=== PATIENT | male | born 1985 | race Caucasian/White ===

== ENCOUNTER 2016-03-05 15:26 | Inpatient (IN) | payer MEDICAID, OTHER ==
[~2016-03-05] VITALS: Ht 177.8 cm; Wt 76.8 kg
[~2016-03-05 15:26] MED LIST: LITH600 PO; QUET200T PO
[2016-03-05 16:02] LABS: BASOPHILS % (AUTO) 0.1 % (0.0-2.0); HEMATOCRIT 44.2 % (41-53); HEMOGLOBIN 14.7 g/dL (13.5-17.5); LYMPHOCYTES # (AUTO) 3.1 K/uL (1.0-4.8); LYMPHOCYTES % (AUTO) 35.9 % (22.0-44.0); MEAN CORPUSCULAR HEMOGLOBIN 28.9 pg (26.0-34.0); MEAN CORPUSCULAR HGB CONC 33.3 G/dL (31.0-37.0); MEAN CORPUSCULAR VOLUME 87 fL (80-100); MONOCYTES # (AUTO) 0.7 K/uL (0.1-1.0); MONOCYTES % (AUTO) 8.3 % (2.0-9.0); NEUTROPHILS # (AUTO) 4.8 K/uL (1.8-7.7); NEUTROPHILS % (AUTO) 54.7 % (40.0-70.0); PLATELET COUNT (AUTO) 261 K/uL (150-450); RED BLOOD CELL COUNT(AUTO) 5.11 MIL/uL (4.50-5.90); RED CELL DISTRIBUTION WIDTH 12.6 % (11.5-14.5); WHITE BLOOD COUNT (AUTO) 8.8 K/uL (4.5-11.0)
[2016-03-05 16:10] LABS: ANION GAP 12 mmol/L (8-16); CALCIUM, TOTAL 9.3 mg/dL (8.8-10.5); CARBON DIOXIDE 26 mmol/L (22-29); CHLORIDE 102 mmol/L (98-107); CREATININE 1.21 mg/dL (0.60-1.30); GLOMERULAR FILTR. RATE CALC > 60 mL/min (>60); POTASSIUM 3.5 mmol/L (3.5-5.1); SODIUM SERUM 140 mmol/L (136-145); UREA NITROGEN, BLOOD 19 mg/dL (7-18)
[2016-03-05 16:16] LABS: ALANINE AMINOTRANSFERASE 25 U/L (12-78); ALBUMIN 3.9 g/dL (3.4-5.0); ASPARTATE AMINOTRANSFERASE 25 U/L (15-37); BILIRUBIN,TOTAL 0.4 mg/dL (0.1-1.0); TOTAL PROTEIN, SERUM 7.4 g/dL (6.4-8.2)
[2016-03-05 16:21] LABS: LITHIUM < 0.20 mmol/L (0.60-1.20)
[2016-03-05] MEDS ORDERED: LORazepam 1 MG TABLET PO ONE (17:30)
[2016-03-05] MEDS ORDERED: LORazepam 2 MG/ML VIAL IM ONE (18:30)
[2016-03-05] MEDS ORDERED: HALOPERIDOL LACTATE 5 MG/ML VIAL IM ONE (18:30)
[2016-03-05] MEDS ORDERED: DiphenhydrAMINE HCL 50 MG/ML VIAL IM ONE (18:30)
[2016-03-05] MEDS ORDERED: HALOPERIDOL 5 MG TABLET PO PRN (18:45)
[2016-03-05] MEDS ORDERED: ZOLPIDEM TARTRATE 10 MG TABLET PO PRN (18:45)
[2016-03-06] MEDS ORDERED: HALOPERIDOL LACTATE 5 MG/ML VIAL IM ONE (04:15)
[2016-03-06] MEDS ORDERED: LORazepam 2 MG/ML VIAL IM ONE (04:15)
[2016-03-06] MEDS ORDERED: DiphenhydrAMINE HCL 50 MG/ML VIAL IM ONE (04:15)
[2016-03-06 14:28] VITALS: BP_SYST 140; BP_DIAS 7; BP_DIAS 76
[2016-03-06 16:00] VITALS: BP 139/79
[2016-03-06] MEDS: NICOTINE 21 MG/24 HOUR PATCH TD SCH (16:14)
[2016-03-07] MEDS: NICOTINE 21 MG/24 HOUR PATCH TD SCH (08:36)
[2016-03-07] MEDS ORDERED: PALIPERIDONE PALMITATE 234 MG/1.5 ML SYRINGE IM SCH (13:00)
[2016-03-07] MEDS: LORazepam 2 MG TABLET PO PRN (13:22)
[2016-03-07 16:00] VITALS: BP 136/78
[2016-03-07] MEDS ORDERED: LITHIUM CARBONATE 600 MG CAPSULE PO SCH (17:00)
[2016-03-07] MEDS ORDERED: QUEtiapine FUMARATE 200 MG TABLET PO SCH (21:00)
[2016-03-08] MEDS: LORazepam 2 MG TABLET PO PRN (05:41)
[2016-03-08] MEDS ORDERED: PALI234D IM (07:33)
[2016-03-08] MEDS: NICOTINE 21 MG/24 HOUR PATCH TD SCH (08:16)
[2016-03-08 08:27] VITALS: BP 131/74
== END 2016-03-08 10:00 | disposition home or self-care (01) | DRG 750 ==
LOC: EMS 15:28 → 3EC 03-06 13:39
PROVIDERS: ADMIT Psychiatry & Neurology Child & Adolescent Psychiatry; ATTEND Psychiatry & Neurology Child & Adolescent Psychiatry
DX: F25.0 Schizoaffective disorder, bipolar type (principal); R45.851 Suicidal ideations; R45.850 Homicidal ideations; F15.10 Other stimulant abuse, uncomplicated; F41.9 Anxiety disorder, unspecified; F17.210 Nicotine dependence, cigarettes, uncomplicated; F12.10 Cannabis abuse, uncomplicated; Z79.899 Other long term (current) drug therapy
CPT/HCPCS: 96372; 99285; G0480; J1200; J1630; J2060